=== PATIENT | female | born 1960 | race Caucasian/White ===

== ENCOUNTER 2025-03-24 02:15 | Day surgery (SDC) | payer OTHER, SELFPAY ==
[2025-03-23 14:22] VITALS: BMI 26.9
--- NOTE | 2025-03-23 14:31 | PC.NURSE ---
[facility] has started construction of its new state of the art ER which will open Spring 2026. With this, we anticipate parking may be a challenge for some our surgical patients and families. Parking spaces are limited but are available for all Surgical, obstetrics, and ER patients sharing this lot. If you arrive and find you are having a hard time finding a parking space, please note that we understand the challenges, please drive around the hospital and park near Hospital Entrance 1. When you enter this entrance, you can ask a volunteer to direct or take you back to the surgical waiting area to check in. We appreciate everyone?s understanding of these expected challenges while we build for your future. Report to the Outpatient Waiting Room, entrance under the green pavilion located off [address], at time _0900_ on date 03/23/25_. Planned Procedure Time: 1100_.? Time changes happen often and if your time is changed the preop area will call you the afternoon before. - You and your visitor will be asked to self-screen and do not enter if you have any COVID symptoms. Please call surgeon if you need to reschedule. - A mask is optional within the hospital at this time. Patients may have clear liquids (water, carbonated beverages, clear teas, apple juice) until 3 hours prior to surgery with a maximum of 20 ounces. - No food from midnight until time of surgery and no smoking, or chewing tobacco (or any form of nicotine). No chewing gum, candy or mints. Take only the following medications with a SIP of water on the morning of surgery: NONE DO NOT STOP ANY OF YOUR OTHER PRESCRIPTION MEDICATIONS PRIOR TO SURGERY EXCEPT THE FOLLOWING Hold all vitamins and supplements for 3 days per anesthesiologist. Medications to discontinue per physician NONE Date to take last dose Please no make-up, nail czech, hairspray, perfume, deodorant, or body powder the day of surgery.? No jewelry (including any body piercings) or valuables the day of surgery, leave them at home.? Please take a shower or bath the night before, or the morning of, surgery with an antibacterial soap.? Wear comfortable, loose fitting clothing.? Children are encouraged to wear pajamas. - Jewelry must be removed prior to entering the operating room.? Rings and piercings that are not removed may be cut off. - The hospital will not accept responsibility for valuables.? - Please leave all valuables, including medications, at home the day of surgery. If you are going home after surgery, a licensed telephone directory distributor driver must drive you home.? - NO public transportation without another adult if you receive anesthesia. - We recommend that an adult stay with you for 24 hours following discharge. - We also recommend that you do not drive, make important decision, drink alcoholic beverages, or take any drugs that were not prescribed by your health care provider for at least 24 hours after your discharge time. For Pediatric surgeries, we recommend two adults accompany the child home. Follow any additional instructions given to you from your surgeon. Telephone instructions given to __PATIENT_and asked if any additional questions and then verbalized understanding. Patient advised to call surgeon office or pre surgery nurse liaison [phone] if any additional questions.
[2025-03-24] VITALS (8 sets, daily range): BP systolic 94–123; BP diastolic 43–74; PULSE 54–86; RESP 12–16; TEMP 36.2–37.4; O2SAT 94–100; BMI 26.3
[2025-03-24] MEDS: ACETAMINOPHEN 500 MG TABLET 1000 MG PO (09:50)
[2025-03-24] MEDS: LACTATED RINGERS 1,000 ML 30 ML IV CONT (09:50)
[2025-03-24] MEDS: KETOROLAC 15 MG/ML VIAL (*BKC) IV PUSH (10:31)
--- NOTE | 2025-03-24 10:41 | P.PNAN_ITS ---
Anes - Initial Pre Proc Eval Procedure: Operation Date: 03/24/25 11:00 Proposed Procedures p Rectal Examination Under Anesthesia, Excision of Thrombosed Hemorrhoids - Sandra Wade MD Date/Time: 03/24/25 10:41 Surgeon: Sandra Wade MD Pre Op Diagnosis: thrombosed hemorrhoids Patient Data Age: 64 Gender: F Height: 1.7 m Weight: 76.25 kg Last Vital Signs Temp 37.4 C 03/24/25 09:58 Pulse 86 03/24/25 09:58 Resp 16 03/24/25 09:58 BP 120/74 03/24/25 09:58 Pulse Ox 94 03/24/25 09:58 O2 Del Method Room Air 03/24/25 09:58 Allergies Allergy/AdvReac Type Severity Reaction Status Date / Time Penicillins AdvReac rash Verified 03/23/25 14:21 Home Medications ?Medication ?Instructions ?Recorded ?Confirmed ?Type atorvastatin 20 mg tablet (Lipitor) 20 mg PO DAILY 04/0603/24/25 History biotin 1 mg tablet 1 mg PO DAILY 03/23/2503/24 History multivitamin 1 tablet PO DAILY 03/23/25 1 05/24/24 History Patient hx anesthesia problems: none Family hx anesthesia problems: none Results Review: All pre-operative results and documents have been reviewed as part of the pre- operative evaluation. [facility], [facility] Past Medical History Medical History Hx of hyperlipidemia Hx of anxiety disorder Surgical History Surgical History Hx of colonoscopy History of open reduction and internal fixation (ORIF) procedure right ankle/TIB FIB Family History Family History Father Lung cancer Hypertension Heart problem Mother Depression Social History Social History Smoking status: Former smoker Alcohol intake: current Substance use: never Substance use type: does not use Do You Feel Safe in your Home?: Yes Lack of Transportation: No Lack of Food: Never True Current Housing: I Have Housing Concerned About Future Housing: No Difficulty Paying Gas/Electric Bills: No Difficulty Paying for Meds: No Currently Unemployed: No Education: High School Diploma/GED Difficulty w/ Childcare or Family Care: No Living arrangements: alone Anes - Eval Final PreProcedure Day of Procedure 03/24/25 10:41 Patient weight: overweight Heart: regular rate and rhythm Lungs: clear to auscultation Airway: Mallampati scale class II Neurological: alert and oriented Last oral intake: >/= 8 hours ASA classification: II Emergent: no Anesthetic plan: proceed Anesthesia type and monitoring: general LMA and standard monitoring Results Review: All pre-operative results and documents have been reviewed as part of the pre- operative evaluation. Informed Consent: The patient's anesthetic plan and its attendant risks and benefits were discussed with the patient/family/POA. Questions were solicited and answers provided to the satisfaction of the patient/family/POA.
--- NOTE | 2025-03-24 10:41 | WPDHPUPDATE1 ---
History and Physical Update Update Date/Time: 03/24/25 10:41 History and Physical has been reviewed, including an updated exam of the patient. There are NO changes in the patient's condition. Risks, benefits, and alternatives have been discussed and questions answered. Patient agrees to proceed with procedure.
[2025-03-24] MEDS: ceFAZolin 2 GM in SODIUM CHLORIDE 0.9% IV 50 ML 100 ML IVPB (11:10)
[2025-03-24] MEDS: BUPIVACAINE/EPINEPHRINE 0.5% 50 ML VIAL 30 ML INFILTRATE (11:33)
--- NOTE | 2025-03-24 11:34 | S_PTH ---
PATIENT: Rosa Isela Candelario LOC: [facility] U#:[id number] AGE/SX: 64/F ROOM: RE03/24/[address]: Sandra Wade MD : 1960 BED: DIS: 03/24/2025 SPEC #: [id number] RECD: 03/24/25 13:38 STATUS: NOEL REQ #: [id number] DARYL: 03/24/25 11:[address]: Sandra Wade DEPT: [facility] Surgical RECD BY: Brianne Mcknight ENTERED: 03/24/25 13:38 SP TYPE: Surgical OTHR DR: Gage Johns, PA-C Tissues: A - Hemorroid Procedures: Hematoxylin and Eosin Stain Gross and Microscopic Level 3
[2025-03-24] MEDS: LIDOCAINE 2% GEL UROJET 10 ML PKG MUCOUS MEM (11:41)
--- NOTE | 2025-03-24 12:04 | W.PM.PROC2 ---
Procedure Note - Detailed Date of Procedure 03/24/25 Pre-op Diagnosis Multiple thrombosed external hemorrhoids with evidence of necrosis Post-op Diagnosis Same Procedure Performed Exam under anesthesia, thrombosed external hemorrhoidectomy involving left lateral and right anterior positions Surgeon Sandra Wade MD Anesthesia General and Local Indications 64-year-old female presenting to the office with massively thrombosed external hemorrhoids, evidence of skin necrosis Findings multiple thrombosed external hemorrhoids with skin necrosis predominately in L lateral and R anterior Description of Procedure The patient was taken to the operating room and placed in the modified lithotomy position. After adequate induction of general anesthesia, the patient was prepped and draped in the normal sterile fashion. A time-out was then done to verify the patient's identity, as well as the procedure being performed. I began by doing a digital exam. There was noted to be multiple thrombosed external hemorrhoids, however no internal hemorrhoids were noted. Of note 2 of these were extremely inflamed and there was evidence of overlying skin necrosis. At this point, a bilateral pudendal block was done. Then used the lone Star retractor to further evaluate the anal canal as well as rectum, other than external hemorrhoids no other pathology was noted. I 1st evacuated the clot out of these 2 larger thrombosed hemorrhoids. The overlying necrotic area was opened and the clot was then evacuated. I then began excising the external hemorrhoids using the hand-held LigaSure device. The hemorrhoids were noted to be in the left lateral and right anterior positions. Multiple hemorrhoids were excised using the LigaSure. The specimens will be sent to pathology for further review. Hemostasis was noted at all excision sites. I then placed a piece of Gelfoam covered with lidocaine jelly into the rectal vault. The patient tolerated the procedure and was extubated in the operating room postop. She will be transferred to the recovery room in stable condition. Implants Gelfoam covered with lidocaine jelly in the rectal vault Estimated Blood Loss 10 Drains No Packing Yes Pathology Yes Complications No immediate complications Condition Stable Disposition PACU [facility] Billing Surgery - Charge Forward: Surgery Billing
[2025-03-24] MEDS: oxyCODONE HCL (*CRX) 5 MG TAB IR PO (12:50)
== END 2025-03-24 13:50 | disposition home or self-care (01) ==
PROVIDERS: PCP Physician Assistant; Visit Provider Surgery
PROC: (CPT 46320; principal; 2025-03-24 11:00)
DX: K64.5 Perianal venous thrombosis (principal); K62.89 Other specified diseases of anus and rectum; E78.5 Hyperlipidemia, unspecified; F41.9 Anxiety disorder, unspecified; Z98.890 Other specified postprocedural states; Z87.891 Personal history of nicotine dependence; Z80.1 Family history of malignant neoplasm of trachea, bronchus and lung; Z82.49 Family history of ischemic heart disease and other diseases of the circulatory system
CPT/HCPCS: 46320; 46250; 88304; J0690; A9270; J1100; J1885; J2003; J2250; J2405; J2704; J3010; J7120

== ENCOUNTER 2025-04-12 16:26 | Emergency (ER) | payer OTHER, SELFPAY ==
[2025-04-12 17:03] VITALS: BP 101/60; PULSE 103; RESP 18; TEMP 36.9; O2SAT 97
--- NOTE | 2025-04-12 22:05 | PC.NURSE ---
pt called for blood draw in triage. No answer.
--- NOTE | 2025-04-12 22:34 | PC.NURSE ---
pt called for vitals. No answer
== END 2025-04-12 22:34 | disposition left against medical advice (07) ==
PROVIDERS: PCP Physician Assistant
DX: K59.00 Constipation, unspecified (principal)
CPT/HCPCS: 99199

== ENCOUNTER 2025-04-12 19:00 | Emergency (ER) | payer OTHER, SELFPAY ==
[2025-04-12 19:03] VITALS: BP 142/69; PULSE 96; RESP 20; TEMP 36.2; O2SAT 98
--- OUTSIDE RECORDS SUMMARY | 2025-04-12 19:19 | XMS_ITS | Clinical Summary ---
Author Organization [facility] Address [address] [place] [id number] Care Team Providers Care Sales Project Coordinator Name Role Phone Arnoldo Barr MD Primary Care Provider Allergies Active Allergy Reactions Criticality Noted Date Comments Penicillins Hives 08/22/2021 Medications atorvastatin 20 MG tabletIndication s:Hyperlipidemia Take 20 mg by mouth daily. Indications : High Amount of Fats in the Blood Active ketorolac 10 MG tablet Take 10 mg by mouth every 6 (six) hours as needed for Pain. Active Family History Medical History Relation Comments Cancer Father Dementia Mother Heart Disease Mother Relation Status Comments Father Mother Social History Tobacco Use Types Packs/Day Years Used Date Smoking Tobacco: Former Cigarettes Smokeless Tobacco: Never Comments:10yrs ago still vap es Alcohol Use Standard Drinks/Week Comments Never 0 (1 standard drink = 0.6 oz pur e alcohol) Comments No Sex and Gender Information Value Date Recorded Sex Assigned at Not on file Legal Sex Female 10:07 AM CDT Gender Identity Not on file Sexual Orientation Not on file Last Filed Vital Signs Vital Sign Reading Time Taken Comments Blood Pressure 124/78 09/04/2021 4:45 AM CDT Pulse 66 09/04/2021 4:12 AM CDT Temperature 36.9 C (98.4 F) 09/04/2021 12:41 AM CDT Respiratory Rate 18 09/04/2021 4:12 AM CDT Oxygen Saturation 96% 09/04/2021 4:12 AM CDT Inhaled Oxygen Concentration - - Weight 95.3 kg (210 lb) 09/04/2021 12:41 AM CDT Height 170.2 cm (5' 7) 09/04/2021 12:41 AM CDT Body Mass Index 32.89 09/04/2021 12:41 AM CDT Plan of Treatment Health Maintenance Due Date Last Done Comments Cervical Cancer Screening Pa p Smear (Age 30 to 64) Every 3 Years 1962 Colorectal Cancer Screening Colonoscopy (10 Years) 1962 Annual Physical 1965 Hepatitis C 1980 DTaP, Tdap and Td Vaccines ( 1 - Tdap) 1981 Cervical Cancer Screening Pa p with HPV Testing (Age 30 to 64) Every 5 Years 1992 Cervical Cancer Screening wi th HPV 1992 Mammogram Screening 2002 Pneumococcal Vaccine: 50+ Years (1 of 1 - PCV) 2012 Zoster Vaccines (1 of 2) 2012 COVID-19 Vaccine (3 - 2024-2 6 season) 2025 11/12/2020, 10/19/2020 Influenza Adult (#1) 2025 RSV Immunization or 60+ Years (1 - 1-dose 75+ series) 2037 Hepatitis A Vaccines Aged Out No long er eligible based on patient's age to complete this topic Meningococcal B Vaccine Aged Out No l onger eligible based on patient's age to complete this topic Meningococcal Vaccine Aged Out No lisa grady eligible based on patient's age to complete this topic RSV Immunizations Under 20 Months Aged Out No longer eligible b ased on patient's age to complete this topic Medical Devices Implanted Type Area Assembly Machine Feeder Device Identifier Shelf Expiration Date Model / Serial / Lot Stent [employer] Ureteral Filaform 6 Fr X 24cm - [id number] Implanted:Qty: 1 on 08/30/2021 by Edita Rice MD at [facility] [employer] 08/03/2022 [id number] / / [id number] Insurance [facility] Care Teams Sales Project Coordinator Relationship Specialty Start Date End Date Arnoldo Barr MD [address] [place] [phone] PCP - General FAMILY PRACTICE 08/21/21
--- NOTE | 2025-04-12 19:21 | ED_ITS ---
HPI - General Adult General Chief complaint: Unspecified Stated complaint: constipation Time Seen by Provider: 04/12/25 19:08 Source: patient Mode of arrival: ambulatory Limitations: no limitations History of Present Illness HPI narrative: Patient is status post hemorrhoidectomy March 24 the 2024 at [facility]. Complaining of constipation for the last 7 days. Yesterday had little amount of stool out, denies any fever or chills or nausea or vomiting, hurts so bad to strain. No bleeding. Patient on MiraLax once a day. Related Data Home Medications ?Medication ?Instructions ?Recorded ?Confirmed ?Last Taken ?Type atorvastatin 20 mg tablet (Lipitor) 20 mg PO DAILY 04/0604/07/25 Unknown History Allergies Allergy/AdvReac Type Severity Reaction Status Date / Time Penicillins AdvReac rash Verified 04/12/25 19:07 Review of Systems Review of Systems: All systems reviewed & are unremarkable except as noted in HPI and below PMFSH Past Medical History Medical History Hx of hyperlipidemia Hx of anxiety disorder Surgical History Surgical History Hx of hemorrhoidectomy Exam under anesthesia, thrombosed external hemorrhoidectomy involving left lateral and right anterior positions 03/24/2025 Dr. Wade Hx of colonoscopy History of open reduction and internal fixation (ORIF) procedure right ankle/TIB FIB Family History Family History Father Lung cancer Hypertension Heart problem Mother Depression Social History Social History Smoking packs per day: 1 Smoking cigarettes per day: 20.0 Years smoked: 25 Smoking pack-years: 25.00 Smoking status: Former smoker Additional smoking assessment comments: QUIT 2014 Alcohol intake: current Alcohol use details: SPECIAL OCCASIONS Substance use: never Substance use type: does not use Lack of Transportation: No Lack of Food: Never True Current Housing: I Have Housing Concerned About Future Housing: No Difficulty Paying Gas/Electric Bills: No Difficulty Paying for Meds: No Currently Unemployed: No Education: High School Diploma/GED Difficulty w/ Childcare or Family Care: No Living arrangements: alone Exam Narrative: General appearance: Well-developed, well-nourished Skin: Normal color Head: Normocephalic, nontraumatic Chest and respiratory: Airway patent, no respiratory distress, no accessory muscle use Heart: Regular rate/rhythm Abdomen: Soft, nontender, no organomegaly, quiet bowel sounds, anal exam showing no hemorrhoids, no bleeding, rectal exam showing soft a ball of stool roughly 2 in above the anus, difficult to be minimally disimpacted. +patient in severe pain during the anal exam . Neurologic: Alert and oriented ?3, REGISTERED PUBLIC HEALTH NURSE is normal as tested, no gross motor deficit Course Vital Signs Vital signs: Vital Signs Temperature 36.2 C L 04/12/25 19:03 Pulse Rate 96 04/12/25 19:03 Respiratory Rate 20 04/12/25 19:03 Blood Pressure 142/69 H 04/12/25 19:03 Pulse Oximetry 98 04/12/25 19:03 Oxygen Delivery Room Air 04/12/25 19:03 Temperature 36.2 C L 04/12/25 19:03 Pulse Rate 96 04/12/25 19:03 Respiratory Rate 20 04/12/25 19:03 Blood Pressure 142/69 H 04/12/25 19:03 Pulse Oximetry 98 04/12/25 19:03 Oxygen Delivery Room Air 04/12/25 19:03 [facility] MDM Narrative Medical decision making narrative: Constipation, fecal impaction, Anal exam showing severe tenderness, patient can not tolerate anal exam. 1 mg Dilaudid IM, 4 mg Zofran p.o. given, Soapsuds enema, liquidy stool, a ball of stool still in the rectal area patient unable to get it out Repeat soapsuds enema, same result as above. Patient was advised to try MiraLax 1 pack every 2 hour up to 6 times a day, heating pad, and stay active. Patient feeling a little better compared to on arrival, The pt was discharged to home.the pt,s condition upon discharge was fair,ed ucation was provided to the pt in reference to the final impression,discharge study results,treatment,prognosis and need for follow up . Differential Diagnosis Differential Diagnosis: Constipation, fecal impaction Critical Care Time Critical Care Time Critical Care Time: No Discharge Plan Discharge Clinical Impression: Constipation Patient Disposition: Home Condition: Stable Instructions: Constipation (DC) Additional Instructions: Return if symptoms are worsening , call your family physician for appointment, take Tylenol as as needed for aches and pain, continue home medications. Take MiraLax 1 pack every 2 hours up to 6 times a day. Heating pad Encourage physical activities Patient Language: Turkish Prescriptions: No Action atorvastatin [Lipitor] 20 mg tablet 20 mg PO DAILY Follow-up/Referrals: Andreas,MARY Almonte [Primary Care Provider]
[2025-04-12] MEDS: ONDANSETRON HCL ODT 4 MG TABLET PO (19:28)
[2025-04-12] MEDS: HYDROmorphone HCL INJ (*CRX) 2 MG/ML VIAL 1 MG IM (19:28)
[2025-04-12 21:39] VITALS: BP 105/66; PULSE 91; RESP 18; TEMP 35.9; O2SAT 100
== END 2025-04-12 21:45 | disposition home or self-care (01) ==
PROVIDERS: Emergency Provider Emergency Medicine; PCP Physician Assistant
DX: K59.00 Constipation, unspecified (principal); Z87.891 Personal history of nicotine dependence
CPT/HCPCS: 96372; 99283; A9270; J1171

== ENCOUNTER 2025-04-13 14:58 | Observation (INO) | payer OTHER, SELFPAY ==
--- NOTE | ~2025-04-13 | XR_ITS ---
XR abdomen/kub 1V 04/13/2025 16:21 Indication: Fecal impaction Procedure: KUB Comparison: No prior studies for comparison. Findings: Nonspecific bowel gas pattern, likely ileus. Mildly distended small bowel measuring up to 2.8 cm in the central abdomen. Moderate fecal material in the distal colon and rectum. No definite obstruction. No abnormal calcifications or masses. No acute osseous abnormality. Lung bases unremarkable. Impression: 1: Nonspecific bowel gas pattern, likely ileus. Reviewed, dictated and finalized at location I. TH CARE CONSULTANT Impression: 1: Nonspecific bowel gas pattern, likely ileus.
--- NOTE | 2025-04-13 15:22 | ADMGEN ---
This patient, Rosa Isela Candelario, was admitted to Medical Room 345-01. Patient/family oriented to hospital policies and general routines including ID bracelet, bed and alarms, visiting hours, pain management, procedures, bathroom and other care routines, personal items, smoking policy, room service/diet, and visiting hours. Information on how to activate the Rapid Response Team has been discussed. Patient/Family are encouraged to report perceived risks to care and to ask questions if they do not understand what they are told or what they should do.
[2025-04-13 15:30] VITALS: BMI 25.5
[2025-04-13 15:33] VITALS: BMI 25.5
[2025-04-13 15:33] LABS: Hematocrit 39.8 % (37.0-47.0); Hemoglobin 12.9 g/dL (12.0-15.0); Immature Granulocyte Percent A 0.4 % (0-0.5); Lymphocytes Absolute Auto 1.62 K/mm3 (0.9-3.2); Mean Corpuscular HGB Conc 32.4 g/dl (32-36); Mean Corpuscular Hemoglobin 31.5 pg (26-34); Mean Corpuscular Volume 97.3 fl (80-100); Nucleated Red Blood Cells Absolute Auto 0.000 K/mm3 (0.0-0.012); Nucleated Red Blood Cells Perc 0.0 % (0.0-0.2); Platelet Count Result 361 k/mm3 (150-375); Red Blood Count 4.09 M/mm3 (4.2-5.4); White Blood Count 10.3 K/mm3 (4.5-10.0)
[2025-04-13 15:35] VITALS: BP 116/56; PULSE 91; RESP 12; TEMP 36.9; O2SAT 98
[2025-04-13] MEDS: MORPHINE SULFATE (*CRX) 4 MG/ML INJ 2 MG IV PUSH (15:36)
[2025-04-13 15:37] VITALS: BP 116/56; PULSE 71; RESP 12; TEMP 36.9; O2SAT 98
[2025-04-13 15:46] LABS: Anion Gap 6 mmol/L (4-12); Blood Urea Nitrogen 11 mg/dL (7-17); Calcium 9.5 mg/dL (8.4-10.2); Carbon Dioxide 27 mmol/L (22-30); Chloride 101 mmol/L (98-107); Estimated CRCL calculation 60 ml/min; Estimated Glomerular Filt Rate > 60; Glucose 104 mg/dL (65-110); Potassium 4.2 mmol/L (3.4-5.0); Sodium 134 mmol/L (137-145)
--- NOTE | 2025-04-13 16:06 | PM.IMHP2 ---
H&P: HPI History of Present Illness Date/Time: 04/13/25 16:06 Chief Complaint: Rectal pain, fecal impaction Narrative: This is a 64-year-old female with history of kidney stones and hemorrhoids, who recently underwent exam under anesthesia, thrombosed external hemorrhoidectomy involving left lateral and right anterior positions by Dr. Wade on 03/24/25. She was initially doing well with typical postoperative rectal pain that was controlled with narcotic medication. She reports having liquid BMs after surgery but moving her bowels almost daily. She was tolerating a diet. Just over a week ago, her bowel movements stopped and she felt constipated. She took multiple OTC medications, such as Miralax, milk of mag, mag citrate, and docusate. She did have a BM after the 1/2 bottle mag citrate, which was last Saturday, 8 days ago. Since then, she has felt more constipated and developed nausea, but no vomiting. She reports having some rectal leakage of liquid stool the past few days and she has developed rectal pressure and pain. No abdominal pain. She has been able to tolerate a diet, but states she has not been eating much due to her nausea. She went to [place] [facility] yesterday and was tired of waiting in the waiting room, therefore she left and had her son take her to [place] [facility]. They gave her 2 soap suds enemas without any significant BM. She was then discharged home with instructions to take Miralax daily and use warm compresses and move around. She still has not had a BM and is extremely uncomfortable and followed up with Dr. Wade in our office today. She was unable to tolerate a rectal exam for disimpaction and was extremely uncomfortable in the office. She is now being admitted for rectal pain and fecal impaction. Review of Systems Review of Systems: All systems reviewed & are unremarkable except as noted in HPI and below PMFSH Past Medical History Medical History Hx of hyperlipidemia Hx of anxiety disorder Surgical History Surgical History (Updated 04/13/25 @ 16:16 by Thelma Hartley APRN) Hx of hemorrhoidectomy Exam under anesthesia, thrombosed external hemorrhoidectomy involving left lateral and right anterior positions 03/24/2025 Dr. Wade Hx of colonoscopy History of open reduction and internal fixation (ORIF) procedure right ankle/TIB FIB Family History Family History Father Lung cancer Hypertension Heart problem Mother Depression Social History Social History Smoking packs per day: 1 Smoking cigarettes per day: 20.0 Years smoked: 25 Smoking pack-years: 25.00 Smoking status: Former smoker Additional smoking assessment comments: QUIT 2014 Alcohol intake: current Alcohol use details: SPECIAL OCCASIONS Substance use: never Substance use type: does not use Lack of Transportation: No Lack of Food: Never True Current Housing: I Have Housing Concerned About Future Housing: No Difficulty Paying Gas/Electric Bills: No Difficulty Paying for Meds: No Currently Unemployed: No Education: High School Diploma/GED Difficulty w/ Childcare or Family Care: No Living arrangements: alone Meds Home Medications and Allergies Home Medications ?Medication ?Instructions ?Recorded ?Confirmed ?Type atorvastatin 20 mg tablet 20 mg PO DAILY 04/13/25 04/13/25 History meloxicam 7.5 mg tablet 7.5 mg PO BID PRN pain, moderate 04/13/25 04/13/25 History oxycodone 10 mg tablet 10 mg PO Q8H PRN pain 04/13/25 04/13/25 History Allergies Allergy/AdvReac Type Severity Reaction Status Date / Time Penicillins AdvReac rash Verified 04/13/25 16:16 Vital Signs Vital Signs - 24 hr 04/13/25 15:35 04/13/25 15:37 Temperature 98.5 F 98.5 F Pulse Rate 91 71 Respiratory Rate 12 12 Blood Pressure 116/56 L 116/56 L Pulse Oximetry 98 98 Exam Const: General: no acute distress and uncomfortable Nutritional Appearance: average body habitus Orientation/consciousness: patient oriented x3 HENMT: Head: normocephalic and atraumatic Ears: hearing grossly normal bilaterally Eyes: General: appearance normal, both eyes and all related structures Pupils: Equal, round and reactive pupils present Neck: Neck: normal visual inspection and full ROM Resp: Effort & Inspection: no respiratory distress Auscultation: clear to auscultation bilaterally Cardio: Rate: regular rate Rhythm: regular rhythm Peripheral pulses: Peripheral pulses 2+ throughout GI: Inspection: non-distended GI Palp: Yes Soft to palpation, No Tenderness to palpation present (GI), No Guarding due to palpation present (GI), Yes No hepatosplenomegaly present and No Rebound tenderness present Percussion: Yes normal to percussion Auscultation: normal bowel sounds Rectal Exam: No abscess, No Lesions present (GI) and No mass Other: Visual inspection of the anal verge is normal with no hemorrhoids noted. Digital rectal exam revealed a solid but soft stool ball about 5 cm in at the end of my digit, I attempted manual disimpaction, which the patient had difficulty tolerating. I was able to disimpact a small amount of soft, sai-like brown stool, but aborted per the patient's request. No blood in the stool. Skin: General skin exam: normal color Neuro: General: moves all extremities and no focal motor deficits Speech: normal speech Motor exam (neuro): 5/5 motor strength present throughout Extrem: General: normal to inspection and no edema Psych: Mental Status: mental status grossly normal Attitude: cooperative Insight: Good insight present (Psych) Judgement: Good judgement present (Psych) Results Labs Labs: Short CBC 04/13/25 Range/Units 15:24 WBC 10.3 H (4.5-10.0) K/mm3 Hgb 12.9 (12.0-15.0) g/dL Hct 39.8 (37.0-47.0) % Plt Count 361 (150-375) k/mm3 BMP 04/13/25 15:24 Sodium 134 L Potassium 4.2 Chloride 101 Carbon Dioxide 27 BUN 11 Creatinine 0.82 Glucose 104 Calcium 9.5 Assessment and Plan Assessment and plan (1) Fecal impaction: Code(s): K56.41 - Fecal impaction Status: Acute Assessment and Plan: Patient is 3 weeks following her hemorrhoidectomy with rectal pain and constipation. Rectal exam reveals a fecal impaction. Manual disimpaction attempted, but only a small amount of soft stool was retrieved as the patient had difficulty tolerating this. Will order a KUB to further evaluate and could consider CT scan if she develops abdominal pain or there are any findings on plain films that would warrant further investigation. She has not had any abdominal imaging in [place] or since surgery. At this time she has a completely benign abdominal exam and this seems most likely related to constipation/fecal impaction. Will start giving her enemas and try stimulating her from above if the KUB looks okay. She can have a regular diet and we will continue analgesics as needed. (2) Hx of hemorrhoidectomy: Code(s): Z98.890 - Other specified postprocedural states Status: Resolved Assessment and Plan: Almost 3 weeks postop external hemorrhoidectomy by Dr. Wade. Healing well, but now dealing with constipation. Plan I have discussed the patient's case, recommendations, and treatment plan with Dr. Wade.
--- OUTSIDE RECORDS SUMMARY | 2025-04-13 16:13 | XMS_ITS | Clinical Summary ---
Author Organization [facility] Address [address] [place] [id number] Care Team Providers Care Criminal Justice Faculty Name Role Phone Arnoldo Barr MD Primary Care Provider [phone] Allergies Active Allergy Reactions Criticality Noted Date [...] this topic Medical Devices Implanted Type Area Geriatric Personal Care Aide Device Identifier Shelf Expiration Date Model / Serial / Lot Stent [employer] Ureteral Filaform 6 Fr X 24cm - [id number] Implanted:Qty: 1 on 08/30/2021 by Edita Rice MD at [facility] [employer] 08/03/2022 [id number] / / [id number] Insurance [facility] Care Teams Criminal Justice Faculty Relationship Specialty Start Date End Date Arnoldo Barr MD [address] [place] [id number] PCP - General FAMILY PRACTICE 08/21/21
[2025-04-13] MEDS: MINERAL OIL 30 ML UDC PO (16:42)
[2025-04-13] MEDS: MAGNESIUM CITRATE 300 ML BTL 150 ML PO (16:42)
[2025-04-13] MEDS: ONDANSETRON INJ 4 MG/2 ML VIAL IV PUSH (16:48)
[2025-04-13 17:32] VITALS: PULSE 71; RESP 12; O2SAT 98
[2025-04-13 20:52] VITALS: BP 112/49; PULSE 73; RESP 18; TEMP 36.3; O2SAT 98
[2025-04-14] MEDS: MORPHINE SULFATE (*CRX) 4 MG/ML INJ 2 MG IV PUSH (03:14)
[2025-04-14 04:42] VITALS: BP 116/64; PULSE 72; RESP 16; TEMP 36.2; O2SAT 97
[2025-04-14] MEDS: ATORVASTATIN 20 MG TABLET PO (09:25)
[2025-04-14] MEDS: MINERAL OIL 30 ML UDC PO (09:25)
--- NOTE | 2025-04-14 11:12 | P.PNGS_ITS ---
Progress Note: A&P Assessment and Plan (1) Fecal impaction: Code(s): K56.41 - Fecal impaction Status: Acute Assessment and Plan: * Patient still has not had a significant bowel movement. She is leaking liquid stool per rectum. Given oral stimulants yesterday with no relief. Will give mineral oil enema today and continue to follow. * KUB demonstrated moderate fecal material in the distal colon and rectum. No d efinite obstruction. (2) Hx of hemorrhoidectomy: Code(s): Z98.890 - Other specified postprocedural states Status: Resolved Assessment and Plan: * Almost 3 weeks postop external hemorrhoidectomy by Dr. Wade. Healing well, but now dealing with constipation. Plan I have discussed the patient's case, recommendations, and treatment plan with Dr. Wade. Subjective Subjective Date/Time Seen: 04/14/25 11:12 Patient reports: still having pain and afebrile Interval history: Patient is still having rectal pain. Liquid stool leaking out of rectum. Still no true bowel movement. No enema given yesterday due to confusion with the nursing staff. Exam Const: General: uncomfortable GI: Inspection: non-distended GI Palp: Yes Soft to palpation and Yes Tenderness to palpation present (GI) (diffusely across abdomen) Auscultation: normal bowel sounds Other: liquid stool per rectum Skin: General skin exam: normal color and no rashes or lesions noted Objective Data Vital Signs Vital Signs: Vital Signs - 24 hr 04/13/25 15:35 04/13/25 15:37 04/13/25 17:32 Temperature 98.5 F 98.5 F Pulse Rate 91 71 71 Respiratory Rate 12 12 12 Blood Pressure 116/56 L 116/56 L Pulse Oximetry 98 98 98 Oxygen Delivery Room Air 04/13/25 20:00 04/13/25 20:52 04/14/25 04:42 Temperature 97.4 F L 97.2 F L Pulse Rate 73 72 Respiratory Rate 18 16 Blood Pressure 112/49 L 116/64 Pulse Oximetry 98 97 Oxygen Delivery Room Air 04/14/25 08:00 Temperature Pulse Rate Respiratory Rate Blood Pressure Pulse Oximetry Oxygen Delivery Room Air Intake/Output Intake/Output: Intake & Output 04/11/25 04/12/25 04/13/25 04/14/25 23:59 23:59 23:59 23:59 Intake Total 240 Balance 240 Meds/Results Medications: Active Medications Generic Name Dose Route Start Last Admin Trade Name Freq PRN Reason Stop Dose Admin Acetaminophen 650 mg 04/13/25 16:25 Acetaminophen 325 Mg Tablet PO Q6H PRN Mild Pain (1-3) or Fever Hydrocodone Bitart/Acetaminophen 1 tab 04/13/25 16:25 Hydrocodone/Acetaminophen (*Crx) 5-325 Mg Tablet PO Q4H PRN Pain Rated 4-6 Atorvastatin Calcium 20 mg 04/14/25 09:00 04/14/25 09:25 Atorvastatin 20 Mg Tablet PO 20 mg DAILY SHARON Administration Mineral Oil 30 ml 04/13/25 17:00 04/14/25 09:25 Mineral Oil 30 Ml Udc PO 30 ml BID SHARON Administration Morphine Sulfate 2 mg 04/13/25 14:58 04/14/25 03:14 Morphine Sulfate (*Crx) 4 Mg/Ml Inj IV PUSH 2 mg Q2H PRN Administration Pain Rated 7-10 Naloxone HCl 0.1 mg 04/13/25 14:58 Naloxone Hcl 0.4 Mg/Ml Vial IV PUSH Q2M PRN Opiate Reversal Ondansetron HCl 4 mg 04/13/25 14:58 04/13/25 16:48 Ondansetron Inj 4 Mg/2 Ml Vial IV PUSH 4 mg Q6H PRN Administration Nausea And Vomiting Oxycodone/Acetaminophen 1 tablet 04/13/25 16:24 Oxycodone/Acetaminophen (*Crx) 5-325 Mg Tablet PO Q4H PRN Pain Rated 7-10 Polyethylene Glycol 17 gm 04/13/25 17:00 04/14/25 09:25 Polyethylene Glycol 3350 17 Gm Powd.Pack PO 17 gm BID SHARON Administration Radiology Results: ITS Impressions Abdomen X-Ray 04/13/25 16:29 Impression: 1: Nonspecific bowel gas pattern, likely ileus. Labs Labs: Laboratory Results - last 24 hr 04/13/25 15:24 WBC 10.3 H RBC 4.09 L Hgb 12.9 Hct 39.8 MCV 97.3 MCH 31.5 MCHC 32.4 RDW 14.6 H Plt Count 361 MPV 8.8 Immature Gran % (Auto) 0.4 Neut % (Auto) 73.6 H Lymph % (Auto) 15.7 L [place] % (Auto) 8.1 Eos % (Auto) 1.6 Baso % (Auto) 0.6 Lymph # (Auto) 1.62 [place] # (Auto) 0.8 H Eos # (Auto) 0.2 Baso # (Auto) 0.1 Abs Immat Gran (auto) 0.04 H Absolute Neuts (auto) 7.6 H Absolute Nucleated RBC 0.000 Nucleated RBC % 0.0 Sodium 134 L Potassium 4.2 Chloride 101 Carbon Dioxide 27 Anion Gap 6 BUN 11 Creatinine 0.82 Estim Creat Clear Calc 60 Estimated GFR > 60 Glucose 104 Lactic Acid 1.3 Calcium 9.5
[2025-04-14] MEDS: oxyCODONE/ACETAMINOPHEN (*CRX) 5-325 MG TABLET 1 TABLET PO (12:28)
[2025-04-14] MEDS: MAGNESIUM HYDROXIDE SUSP 30 ML UDC 60 ML PO (12:29)
[2025-04-14 14:00] VITALS: BP 120/66; PULSE 60; RESP 16; TEMP 36.6; O2SAT 96
--- NOTE | 2025-04-14 16:33 | P.DS_ITS ---
DS: Admitting Diagnosis Discharge Date 04/14/25 Admitting Diagnosis fecal mpaction DS: Discharge Diagnosis Discharge Diagnosis (1) Hx of hemorrhoidectomy: Code(s): Z98.890 - Other specified postprocedural states Status: Resolved (2) Fecal impaction: Code(s): K56.41 - Fecal impaction Status: Acute DS: Summary Hospital Course Reason for hospitalization: Patient presented to the general surgery office on 04/13/2025 for a follow-up appointment after hemorrhoidectomy on 03/24/25. she was initially doing well, but just over a week ago her bowel movements stopped and she felt very constipated. She took multiple OTC medications with no relief. Last bowel movement was 8 days prior to office visit. Since then she has felt more constipated and developed nausea. She reports having some rectal leakage of liquid stool. She went to [place] [facility] a day prior to her office visit but left due to long wait times. She then went to [place] [facility] where she was given 2 soapsuds enemas without any relief. Discharged home with instructions for daily MiraLax. Upon patient's visit in the office with Dr. Wade, she still had not yet had a bowel movement. Unable to tolerate rectal exam for disimpaction. Very uncomfortable in the office. Admitted for rectal pain and fecal impaction. Hospital Course: Once patient was admitted to the floor, labs were drawn and showed an ambiguous white blood cell count of 10.3. General surgery team attempted manual fecal disimpaction. Patient was given morphine prior to this, but was unable to tolerate the procedure well. There was a stool ball of sai-like consistency that could be somewhat broken up. Patient was given a bowel regimen of mineral oil, MiraLax, and magnesium citrate. However, the following day patient still had not yet had a true bowel movement. She was leaking liquid stool per her rectum. A mineral oil enema was then given and patient had a large bowel mo vement. Patient felt immediate relief. Surgically stable for discharge. She should follow-up with her primary care provider. Status at Discharge Functional status at discharge: independent ambulation Overall status at discharge: patient is back to baseline Time Spent with Patient Time attestation: Total time spent providing and/or coordinating discharge services: Time spent: Less than 30 minutes Exam Const: General: uncomfortable Other: patient seen prior to enema and bowel movement Eyes: General: appearance normal, both eyes and all related structures Neck: Neck: supple Resp: Effort & Inspection: normal respiratory effort Cardio: Rate: regular rate GI: Inspection: non-distended GI Palp: Yes Soft to palpation and Yes Tenderness to palpation present (GI) ( Diffusely) Auscultation: normal bowel sounds Skin: General skin exam: normal color and no rashes or lesions noted Neuro: Sensory Exam: normal sensation Extrem: General: normal to inspection Psych: Mental Status: mental status grossly normal DS: Data Imaging Radiologist's impression: ITS Impressions Abdomen X-Ray 04/13/25 16:29 Impression: 1: Nonspecific bowel gas pattern, likely ileus. Discharge Plan Discharge Attending physician on discharge: Sandra Wade Discharging Clinician: Karlene Pugh Patient Disposition: Home Activity: september shower Diet: regular Wound Care Instructions: follow printed instructions Discharge Instructions: 1. Continue Miralax twice daily until you are having more than 4-5 bowel movements a day and then back down to once daily Miralax. 2. Minimize narcotic use as this can worsen constipation. 3. Drink plenty of fluids (6-8 glasses of water per day). 4. Follow up with your primary care provider if you are having any additional issues. 5. Return to emergency department if you begin having any increased pain out of proportion, significant bleeding, fevers, or vomiting. Patient Instructions: Antibiotic Form, Polyethylene Glycol 3350 (By mouth), Constipation (DC) Patient Language: Kiswahili Stand Alone Forms: General Discharge Information Follow-up/Referrals: Nimisha,MARY Almonte [Primary Care Provider] - Call for Appointment Discharge Medications: Continued atorvastatin 20 mg tablet 20 mg PO DAILY meloxicam 7.5 mg tablet 7.5 mg PO BID PRN (Reason: pain, moderate) oxycodone 10 mg tablet 10 mg PO Q8H PRN (Reason: pain) Date of admission: 04/13/25 14:58 Primary Care Provider: NimishaGage Admitting Provider: Sandra Wade Attending physician on admission: Sandra Wade Condition: Improved
[2025-04-14] MEDS: MINERAL OIL 30 ML UDC RECTAL (16:35)
== END 2025-04-14 17:03 | disposition home or self-care (01) ==
PROVIDERS: Nurse Practitioner Family; Admitting Provider Surgery; PCP Physician Assistant; Visit Provider Surgery
DX: K56.41 Fecal impaction (principal); Z98.890 Other specified postprocedural states; Z87.19 Personal history of other diseases of the digestive system; Z87.442 Personal history of urinary calculi; Z87.891 Personal history of nicotine dependence; Z79.1 Long term (current) use of non-steroidal anti-inflammatories (NSAID); Z80.1 Family history of malignant neoplasm of trachea, bronchus and lung; Z82.49 Family history of ischemic heart disease and other diseases of the circulatory system; Z81.8 Family history of other mental and behavioral disorders
CPT/HCPCS: 36415; 74018; 80048; 83605; 85025; A9270; G0378; G0379; J2270; J2405